=== PATIENT | female | born 1990 | race Caucasian/White ===

== ENCOUNTER 2019-09-10 06:59 | Outpatient (CLI) | payer OTHER, SELFPAY ==
[2019-09-10 07:20] LABS: Basophils Absolute Auto 0.1 K/mm3 (0.0-0.1); Basophils Percent Auto 0.9 % (0.2-1.2); Eosinophils Absolute Auto 0.2 K/mm3 (0-0.3); Eosinophils Percent Auto 3.7 % (0-4.4); Hematocrit 41.2 % (37.0-47.0); Hemoglobin 13.5 g/dL (12.0-15.0); Immature Granulocyte Absolute 0.01 K/mm3 (0.00-0.031); Immature Granulocyte Percent A 0.2 % (0-0.5); Lymphocytes Absolute Auto 2.38 K/mm3 (0.9-3.2); Lymphocytes Percent Auto 36.4 % (18.3-44.2); Mean Corpuscular HGB Conc 32.8 g/dl (32-36); Mean Corpuscular Volume 94.7 fl (80-100); Monocytes Absolute Auto 0.5 K/mm3 (0.1-0.6); Monocytes Percent Auto 8.1 % (2.6-8.5); Neutrophils Absolute Auto 3.3 K/mm3 (1.3-6.7); Neutrophils Percent Auto 50.7 % (45.5-73.1); Platelet Count Result 332 k/mm3 (150-375); Red Blood Count 4.35 M/mm3 (4.2-5.4); Red Cell Distribution Width 12.3 % (11.5-14.5); White Blood Count 6.5 K/mm3 (4.5-10.0)
[2019-09-10 07:33] LABS: Alanine Aminotransferase 19 U/L (4-35); Albumin Level 4.1 g/dL (3.5-5.1); Alkaline Phosphatase 37 U/L (38-126); Aspartate Amino Transferase 23 U/L (14-36); Bilirubin,Total 0.2 mg/dL (0.2-1.3); Blood Urea Nitrogen 7 mg/dL (7-17); Calcium 8.6 mg/dL (8.4-10.2); Carbon Dioxide 25 mmol/L (22-30); Chloride 104 mmol/L (98-107); Cholesterol 221 mg/dL (0-200); Estimated Glomerular Filt Rate > 60; Glucose 93 mg/dL (65-105); HDL Direct 87 mg/dL; Potassium 4.1 mmol/L (3.4-5.0); Sodium 140 mmol/L (137-145); Triglycerides 109 mg/dL (<150)
[2019-09-10 07:45] LABS: LDL Cholesterol Direct 119 mg/dL
[2019-09-11 16:30] LABS: Homocysteine 8.2 umol/L (<10.4)
== END 2019-09-10 07:00 | disposition home or self-care (01) ==
LOC: ANHIMG 07:01
PROVIDERS: PCP Internal Medicine; Visit Provider Internal Medicine
DX: E55.9 Vitamin D deficiency, unspecified (principal); Z79.899 Other long term (current) drug therapy
CPT/HCPCS: 36415; 80053; 80061; 82306; 83090; 85025

== ENCOUNTER 2019-09-11 10:39 | Outpatient (CLI) | payer OTHER, SELFPAY ==
--- NOTE | ~2019-09-11 | CT_ITS ---
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 TECHNIQUE: Computed tomographic angiography (CTA) of the chest was performed without and with 100 mL Omnipaque-350 intravenous contrast. Volume-rendered 3D-reconstructions of the aorta and large arterie s were constructed by the technologist on a separate workstation. Automated exposure control and iter ative reconstruction technique were employed. The dose-length product was 924 mGy-cm. COMPARISON: None. FINDINGS: A couple 3 mm nodules in the right middle and left upper lobes. 2 mm and 3 mm nodule along the left m ajor fissure most likely normal intrafissural lymph nodes. No pneumonia, pulmonary edema or pleural e ffusion. Heart size is normal. No pericardial effusion. No pathologically enlarged abdominal or pelvi c lymphadenopathy. Thoracic aorta is normal in caliber with no evident atherosclerotic plaque or diss ection. No evident atherosclerotic plaque or stenosis at the great vessels although evaluation is mil dly limited at the origin of the arteries due to streak artifact from dense contrast in the left brac hiocephalic vein. Small amount of nonhemodynamically significant plaque along the left vertebral oscar ry which is dominant. The right vertebral artery is diminutive which is likely developmental with cor responding asymmetrically decreased diameter of the right transverse foramen at C6. Instantly noted a ccessory left hepatic artery arising from the left gastric artery. Visualized upper abdomen is unrema rkable. Multiple Schmorl's nodes throughout the thoracic spine. IMPRESSION: 1. No evident atherosclerotic disease or stenosis at the thoracic aorta or at the great vessels arisi ng from the arch to explain reported subclavian steal syndrome. 2. Dominant left vertebral artery with likely developmentally diminutive right vertebral artery. Reviewed, dictated and finalized at location B. IMPRESSION: 1. No evident atherosclerotic disease or stenosis at the thoracic aorta or at t he great vessels arising from the arch to explain reported subclavian steal syn drome. 2. Dominant left vertebral artery with likely developmentally diminutive right vertebral artery.
== END 2019-09-11 10:40 | disposition home or self-care (01) ==
PROVIDERS: PCP Internal Medicine; Visit Provider Internal Medicine
DX: G45.8 Other transient cerebral ischemic attacks and related syndromes (principal)
CPT/HCPCS: 71275; Q9967

== ENCOUNTER 2019-11-04 08:26 | Outpatient (CLI) | payer OTHER, SELFPAY ==
[2019-11-04 09:26] LABS: Alanine Aminotransferase 18 U/L (4-35); Albumin Level 4.1 g/dL (3.5-5.1); Alkaline Phosphatase 38 U/L (38-126); Aspartate Amino Transferase 29 U/L (14-36); Bilirubin,Total 0.3 mg/dL (0.2-1.3); Blood Urea Nitrogen 8 mg/dL (7-17); Calcium 9.2 mg/dL (8.4-10.2); Carbon Dioxide 29 mmol/L (22-30); Chloride 104 mmol/L (98-107); Cholesterol 168 mg/dL (0-200); Estimated Glomerular Filt Rate > 60; Glucose 91 mg/dL (65-105); HDL Direct 100 mg/dL; Potassium 4.4 mmol/L (3.4-5.0); Sodium 136 mmol/L (137-145); Triglycerides 107 mg/dL (<150)
[2019-11-04 09:38] LABS: LDL Cholesterol Direct 62 mg/dL
== END 2019-11-04 08:27 | disposition home or self-care (01) ==
PROVIDERS: PCP Internal Medicine; Visit Provider Internal Medicine
DX: Z79.899 Other long term (current) drug therapy (principal)
CPT/HCPCS: 36415; 80053; 80061

== ENCOUNTER 2019-12-10 10:50 | Outpatient (CLI) | payer OTHER, SELFPAY ==
--- NOTE | ~2019-12-10 | XR_ITS ---
XR knee RT min 4V 12/10/2019 11:38 INDICATION: Right knee pain PROCEDURE: 4 views right knee COMPARISON: No prior studies for comparison. FINDINGS: Fracture, dislocation or subluxation is not identified. No significant joint effusion. The soft tissues appear within normal limits. No foreign bodies are identified. IMPRESSION: 1: NO ACUTE BONE OR JOINT ABNORMALITY IDENTIFIED. Reviewed, dictated and finalized at location A.
--- NOTE | ~2019-12-10 | XR_ITS ---
XR knee LT min 4V 12/10/2019 11:38 INDICATION: Left knee pain PROCEDURE: 4 views left knee COMPARISON: No prior studies for comparison. FINDINGS: Fracture, dislocation or subluxation is not identified. No significant joint effusion. The soft tissues appear within normal limits. No foreign bodies are identified. IMPRESSION: 1: NO ACUTE BONE OR JOINT ABNORMALITY IDENTIFIED. Reviewed, dictated and finalized at location A.
== END 2019-12-10 10:51 | disposition home or self-care (01) ==
PROVIDERS: PCP Internal Medicine; Visit Provider Internal Medicine
DX: M25.561 Pain in right knee (principal); M25.562 Pain in left knee
CPT/HCPCS: 73564

== ENCOUNTER 2020-01-30 10:32 | Outpatient (CLI) | payer OTHER, SELFPAY ==
--- NOTE | ~2020-01-30 | MR_ITS ---
EXAMINATION: MR wrist RT wo con DATE: 01/30/2020 11:26 INDICATION: Favoring cyst at the dorsum of the right wrist TECHNIQUE: Magnetic resonance imaging (MRI) of the right wrist was performed without intravenous cont rast. Sequences performed include axial PD-weighted FSE and PD-weighted FS FSE, coronal PD-weighted F S FSE and T1-weighted SE, and sagittal PD-weighted FS FSE and PD-weighted FSE. COMPARISON: None FINDINGS: Intrinsic ligaments: The scapholunate and lunotriquetral ligaments are normal. Triangular fibrocartilage complex (TFCC): Increased signal of less than fluid intensity consistent with partial tears at the radial side of the central fiber cartilaginous disc of the triangular fibrocartilage complex as well as of the dorsal r adioulnar ligament and foveal attachment. The ulnar styloid attachments and volar radioulnar ligament s are normal. The ulnar collateral ligament, ulnotriquetral ligament and meniscal homologue are norm al. The extensor carpi ulnaris tendon sheath is normal. Extensor wrist: Extensor tendons of the wrist are normal. Minimal fluid along the extensor carpi radialis longus and brevis tendons consistent with mild tenosynovitis. Flexor wrist: The flexor tendons of the wrist are normal. No abnormality in the carpal tunnel with normal median n erve. Guyon's canal: Guyon's canal including the ulnar nerve and artery are normal. Bones/other: Mild joint space narrowing and chondral surface irregularity consistent with mild osteoarthritis at t he radiocarpal articulation. There is suggestion of some irregularity along the articular cortex of t he distal radius with mild increased fluid signal extending a linear pattern at the volar side of the lunate fossa which suggests possibility of an old healed fracture. Correlate with clinical history. Mild cystic change at the volar aspect of the proximal pole of the capitate. Marrow signal is otherwi se normal. No acute fracture, cortical erosions, osteonecrosis or pathologic marrow replacing process . There is an 11 x 5 x 3 mm ganglion cyst which appears to arise from the volar aspect of the midcarp al joint and tracks proximally along the fibers of the palmar radiocarpal ligament. No dorsal sided g anglion cyst appreciated. Visualized intrinsic musculature of the hand is unremarkable. IMPRESSION: 1. 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 2. Partial tears of the foveal attachment, central fiber cartilaginous disc and volar radioulnar liga ment components of the triangular fiber cartilage complex. 3. Small volar sided ganglion cyst extending along the palmar radiocarpal ligament. No dorsal sided g anglion cyst identified. Reviewed, dictated and finalized at location A. IMPRESSION: 1. 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 2. Partial tears of the foveal attachment, central fiber cartilaginous disc and volar radioulnar ligament components of the triangular fiber cartilage complex . 3. Small volar sided ganglion cyst extending along the palmar radiocarpal ligam ent. No dorsal sided ganglion cyst identified.
== END 2020-01-30 10:33 | disposition home or self-care (01) ==
PROVIDERS: Visit Provider Internal Medicine
DX: R22.31 Localized swelling, mass and lump, right upper limb (principal); M19.041 Primary osteoarthritis, right hand; M19.031 Primary osteoarthritis, right wrist
CPT/HCPCS: 73221

== ENCOUNTER 2020-02-11 07:19 | Outpatient (RCR) | payer OTHER, SELFPAY ==
--- NOTE | 2020-02-11 08:56 | OTOPEVAL ---
OCCUPATIONAL THERAPY EVALUATION REPORT 02/11/2020 Thank you for referring Dorys Nguyễn to [facility].?OT indicated every other week for 4 weeks (two sessions total) for follow up on splint wearing, progression of exercise from stretching to strengthening, splint weaning schedule, and eventually strengthening to facilitate optimal functional use of the right UE. Please review, sign, date and return this plan of care SUAD. I agree with and certify that the following plan of care is medically necessary. Referring Physician Date Referring Provider: Dr. Redd *OT Outpatient Evaluation Therapy Assessment Status Assessment Status Assessment Status Evaluation Evaluation Information Problem Diagnosis Right wrist pain Onset Chronic - about 3 years Subjective Information Patient reports having wrist Query Text:As Reported By Patient/ pain during work tasks such as Family typing and mouse use, kayaking, and ADLs. She has an off the shelf wrist cock up brace intermittently with pain. She has not tried a regular schedule with the brace. Prior Level of Function Activity Level (Last 3 Months) Occupation RN Hand Dominance Right Pain Assessment Timing of Pain Assessment Timing of Pain Assessment Assessment Pain Scale Pain Scale Used Numeric (1 - 10) Self Report Pain Assessment Right Dorsal Wrist(s) Reported Pain Level 4 Pain Description Aching Pain Frequency Chronic,Continuous Lowest Pain Intensity 3 Greatest Pain Intensity 9 Other Pain Aggravating Factors kayaking, mowing the grass Pain Score Pain Score 4: Self Report Upper Extremity Range of Motion General Upper Extremity Range of Motion Reason Not Measured WNL/Right Gross Upper Extremity Range of Motion Pain with full forearm Comments rotation, wrist flexion, wrist extension, and full fist. Patient reports a stretching, painful sensation with wrist flexion and full gripping. Upper Extremity Muscle Strength Testing General Upper Extremity Strength Reason Not Measured WNL/Right Gross Upper Extremity Strength Comments Gross strength of the (R) UE is WNL. Palpation Assessment Palpation Palpation Tender on dorsum of wrist along ED tendons. No signs or symptoms of lateral epicondylitis. Splint/Brace/Cast Assessment Splint and Bracing Assessment Right Wrist Fabrication Clinician Made Splint/Brace/Cast Type Wrist Cock-U
--- NOTE | 2020-03-01 10:21 | OTOPEVAL ---
OCCUPATIONAL THERAPY DISCHARGE NOTE 03/01/2020 Thank you for referring Dorys Nguyễn to [facility]. Dorys participated in 2 therapy sessions, which consisted of orthotic fabrication and education on body mechanics and rest to treat chronic right wrist pain. The patient reports that due to her active lifestyle, she is unable to properly rest the wrist and remain compliant with immobilizing. She did state that using kinesiotape on her wrist while at work does help to alleviate her symptoms and she finds she takes less NSAIDS during the day. Recommend that the patient follow up with MD for other intervention in the future if she is unable to maintain mild symptoms. Please review, sign, date and return this discharge SUAD. I agree with and certify that the following plan of care is medically necessary. Referring Physician Date Referring Provider: Rosalind Tang MD
== END 2020-03-01 14:07 | disposition home or self-care (01) ==
LOC: ANHOT 07:19
DX: M25.531 Pain in right wrist (principal)
CPT/HCPCS: 97140; 97166; L3906

== ENCOUNTER 2020-04-02 08:06 | Outpatient (CLI) | payer OTHER, SELFPAY ==
[2020-04-02 08:47] LABS: Basophils Absolute Auto 0.1 K/mm3 (0.0-0.1); Basophils Percent Auto 0.7 % (0.2-1.2); Eosinophils Absolute Auto 0.2 K/mm3 (0-0.3); Eosinophils Percent Auto 2.3 % (0-4.4); Hematocrit 42.4 % (37.0-47.0); Hemoglobin 14.1 g/dL (12.0-15.0); Immature Granulocyte Absolute 0.03 K/mm3 (0.00-0.031); Immature Granulocyte Percent A 0.4 % (0-0.5); Lymphocytes Absolute Auto 1.85 K/mm3 (0.9-3.2); Lymphocytes Percent Auto 26.7 % (18.3-44.2); Mean Corpuscular HGB Conc 33.3 g/dl (32-36); Mean Corpuscular Hemoglobin 30.9 pg (26-34); Mean Platelet Volume 9.2 fl (7.4-10.4); Monocytes Absolute Auto 0.6 K/mm3 (0.1-0.6); Monocytes Percent Auto 8.2 % (2.6-8.5); Neutrophils Absolute Auto 4.3 K/mm3 (1.3-6.7); Neutrophils Percent Auto 61.7 % (45.5-73.1); Platelet Count Result 287 k/mm3 (150-375); Red Blood Count 4.56 M/mm3 (4.2-5.4); Red Cell Distribution Width 12.5 % (11.5-14.5); White Blood Count 6.9 K/mm3 (4.5-10.0)
[2020-04-02 08:58] LABS: Alanine Aminotransferase 53 U/L (4-35); Albumin Level 4.7 g/dL (3.5-5.1); Alkaline Phosphatase 37 U/L (38-126); Anion Gap 8 mmol/L (8-16); Aspartate Amino Transferase 39 U/L (14-36); Bilirubin,Total 0.3 mg/dL (0.2-1.3); Blood Urea Nitrogen 10 mg/dL (7-17); Calcium 9.7 mg/dL (8.4-10.2); Carbon Dioxide 33 mmol/L (22-30); Chloride 100 mmol/L (98-107); Cholesterol 167 mg/dL (0-200); Estimated Glomerular Filt Rate > 60; Glucose 88 mg/dL (65-105); HDL Direct 91 mg/dL; Potassium 4.8 mmol/L (3.4-5.0); Sodium 141 mmol/L (137-145); Triglycerides 72 mg/dL (<150)
[2020-04-02 09:09] LABS: LDL Cholesterol Direct 60 mg/dL
[2020-04-02 09:25] LABS: Hemoglobin A1C 4.8 % (<5.7)
[2020-04-02 09:29] LABS: Thyroid Stimulating Hormone 0.782 uIU/mL (0.465-4.680)
[2020-04-02 09:45] LABS: Free T4 Free Thyroxine 0.83 ng/mL (0.78-2.19); Vitamin D 25 Hydroxy 43.6 ng/mL
[2020-04-06 13:16] LABS: Homocysteine 15.1 umol/L (<10.4)
== END 2020-04-02 08:07 | disposition home or self-care (01) ==
PROVIDERS: Visit Provider Internal Medicine
DX: E78.5 Hyperlipidemia, unspecified (principal); Z79.899 Other long term (current) drug therapy; E55.9 Vitamin D deficiency, unspecified
CPT/HCPCS: 36415; 80053; 80061; 82306; 83036; 83090; 84439; 84443; 85025

== ENCOUNTER 2020-09-23 14:56 | Outpatient (CLI) | payer OTHER, SELFPAY ==
--- NOTE | 2020-09-23 15:01 | ECHO_ITS ---
Patient Info Name: Dorys Nguyễn Age: 30 years : 1990 Gender: Female Ht: 67 in Wt: 248 lbs BSA: 2.36 m2 HR: 69 bpm BP: 128 / 86 mmHg Technical Quality: Fair Exam Date: 09/23/2020 3:27 PM Exam Location: [facility] Patient Status: Outpatient Admit Date: 09/23/2020 Staff Ordering Physician: Iban Redd MD Paper Sales Representative: Manuela Vasquez RDCS Attending Provider: Iban Redd MD Referring Physician: Tramaine OQUENDO; Exam Type: CA echo doppler color flow Study Info Indications - abn ekg Complete two-dimensional, color flow and Doppler transthoracic echocardiogram is performed. Summary 1. Complete two-dimensional, color flow and Doppler transthoracic echocardiogram is performed. 2. Left ventricular chamber dimension is normal. 3. Left ventricular systolic function is normal, estimated at 60-65%. 4. The left ventricular diastolic function is normal. 5. E/e' 6 is not elevated. 6. Global longitudinal strain is normal at -18.9%. 7. No pulmonary hypertension, estimated pulmonary arterial systolic pressure is 21 mmHg. 8. There is trace pulmonic regurgitation. Left Ventricle E/e' 6 is not elevated. Global longitudinal strain is normal at -18.9%. Left ventricular chamber dimension is normal. Left ventricular systolic function is normal, estimated at 60-65%. The left ventricular diastolic function is normal. Right Ventricle Right ventricular chamber dimension is normal. Right ventricular systolic function is normal. Left Atria Left atrial chamber dimension is normal. Right Atria Right atrial chamber dimension is normal. Aortic Valve The aortic valve is trileaflet. There is no aortic valve stenosis. There is no aortic valve regurgitation. Pulmonic Valve There is trace pulmonic regurgitation. Mitral Valve There is no mitral valve stenosis. There is no mitral valve regurgitation. Tricuspid Valve There is no tricuspid valve regurgitation. No pulmonary hypertension, estimated pulmonary arterial systolic pressure is 21 mmHg. Pericardium/Pleural There is no pericardial effusion. Inferior Vena Cava Normal inferior vena cava with >50% collapse upon inspiration consistent with normal right atrial pressure, 5 mmHg. Aorta The aortic root size at the sinus of Valsalva is normal. Left Ventricular Outflow Tract Name Value Normal LVOT 2D LVOT Diameter 2.1 cm LVOT Doppler LVOT Peak Gradient 4 mmHg LVOT Mean Gradient 2 mmHg LVOT VTI 21 cm LVOT VTI/AV VTI Ratio 1.0 LVOT Stroke Volume 73 ml LVOT CO 15.4 l/min LVOT CI 6.5 l/min/m2 Pulmonic Valve Name Value Normal PV Doppler PV Peak Gradient
== END 2020-09-23 14:57 | disposition home or self-care (01) ==
PROVIDERS: Visit Provider Internal Medicine
DX: R94.31 Abnormal electrocardiogram [ECG] [EKG] (principal); Z82.41 Family history of sudden cardiac death
CPT/HCPCS: 93306

== ENCOUNTER 2020-12-29 10:21 | Outpatient (CLI) | payer OTHER, SELFPAY ==
[2020-12-29 10:56] LABS: Basophils Absolute Auto 0.1 K/mm3 (0.0-0.1); Basophils Percent Auto 0.7 % (0.2-1.2); Eosinophils Absolute Auto 0.1 K/mm3 (0-0.3); Eosinophils Percent Auto 1.8 % (0-4.4); Hematocrit 42.4 % (37.0-47.0); Hemoglobin 13.9 g/dL (12.0-15.0); Immature Granulocyte Absolute 0.01 K/mm3 (0.00-0.031); Immature Granulocyte Percent A 0.1 % (0-0.5); Lymphocytes Absolute Auto 1.89 K/mm3 (0.9-3.2); Lymphocytes Percent Auto 25.8 % (18.3-44.2); Mean Corpuscular HGB Conc 32.8 g/dl (32-36); Mean Corpuscular Hemoglobin 31.4 pg (26-34); Mean Corpuscular Volume 95.7 fl (80-100); Mean Platelet Volume 9.3 fl (7.4-10.4); Monocytes Absolute Auto 0.5 K/mm3 (0.1-0.6); Monocytes Percent Auto 6.8 % (2.6-8.5); Neutrophils Absolute Auto 4.7 K/mm3 (1.3-6.7); Neutrophils Percent Auto 64.8 % (45.5-73.1); Platelet Count Result 309 k/mm3 (150-375); Red Blood Count 4.43 M/mm3 (4.2-5.4); White Blood Count 7.3 K/mm3 (4.5-10.0)
[2020-12-29 11:09] LABS: Alanine Aminotransferase 34 U/L (4-35); Albumin Level 4.4 g/dL (3.5-5.1); Alkaline Phosphatase 35 U/L (38-126); Anion Gap 10 mmol/L (8-16); Aspartate Amino Transferase 39 U/L (14-36); Bilirubin,Total 0.4 mg/dL (0.2-1.3); Blood Urea Nitrogen 10 mg/dL (7-17); CRP < 0.5 mg/dL (<1.0); Calcium 9.6 mg/dL (8.4-10.2); Carbon Dioxide 26 mmol/L (22-30); Chloride 104 mmol/L (98-107); Cholesterol 176 mg/dL (0-200); Estimated Glomerular Filt Rate > 60; Glucose 87 mg/dL (65-110); HDL Direct 87 mg/dL; Potassium 4.2 mmol/L (3.4-5.0); Sodium 140 mmol/L (137-145); Triglycerides 78 mg/dL (<150)
[2020-12-29 11:30] LABS: LDL Cholesterol Direct 67 mg/dL
[2020-12-29 11:54] LABS: Thyroid Stimulating Hormone 0.617 uIU/mL (0.465-4.680)
[2020-12-29 12:34] LABS: Free T4 Free Thyroxine 1.03 ng/mL (0.78-2.19); Vitamin D 25 Hydroxy 43.3 ng/mL
[2021-01-01 04:15] LABS: Insulin Level Total 6.6 uIU/mL (<=19.6)
[2021-01-03 10:47] LABS: Homocysteine 7.4 umol/L (<10.4)
== END 2020-12-29 10:22 | disposition home or self-care (01) ==
PROVIDERS: Visit Provider Internal Medicine
DX: E55.9 Vitamin D deficiency, unspecified (principal); E78.5 Hyperlipidemia, unspecified; Z51.81 Encounter for therapeutic drug level monitoring; Z79.899 Other long term (current) drug therapy
CPT/HCPCS: 36415; 80053; 80061; 82306; 83090; 83525; 84439; 84443; 85025; 86140

== ENCOUNTER 2021-01-26 15:19 | Outpatient (CLI) | payer OTHER, SELFPAY ==
[2021-01-31 00:03] LABS: NIL 0.01 IU/mL; Quantiferon TB Plus, 1T NEGATIVE (NEGATIVE); TB1-NIL 0.01 IU/mL; TB2-NIL 0.01 IU/mL
== END 2021-01-26 15:20 | disposition home or self-care (01) ==
PROVIDERS: Visit Provider Internal Medicine
DX: Z11.1 Encounter for screening for respiratory tuberculosis (principal)
CPT/HCPCS: 36415; 86480

== ENCOUNTER 2021-07-08 09:01 | Outpatient (CLI) | payer OTHER, SELFPAY ==
[2021-07-08 09:32] LABS: Basophils Percent Auto 0.7 % (0.2-1.2); Eosinophils Absolute Auto 0.1 K/mm3 (0-0.3); Eosinophils Percent Auto 1.8 % (0-4.4); Hemoglobin 14.2 g/dL (12.0-15.0); Immature Granulocyte Absolute 0.02 K/mm3 (0.00-0.031); Immature Granulocyte Percent A 0.3 % (0-0.5); Lymphocytes Absolute Auto 1.75 K/mm3 (0.9-3.2); Lymphocytes Percent Auto 28.6 % (18.3-44.2); Mean Corpuscular HGB Conc 34.6 g/dl (32-36); Mean Corpuscular Hemoglobin 32.3 pg (26-34); Mean Corpuscular Volume 93.2 fl (80-100); Mean Platelet Volume 9.1 fl (7.4-10.4); Monocytes Absolute Auto 0.6 K/mm3 (0.1-0.6); Monocytes Percent Auto 9.7 % (2.6-8.5); Neutrophils Absolute Auto 3.6 K/mm3 (1.3-6.7); Neutrophils Percent Auto 58.9 % (45.5-73.1); Platelet Count Result 283 k/mm3 (150-375); Red Cell Distribution Width 11.9 % (11.5-14.5); White Blood Count 6.1 K/mm3 (4.5-10.0)
[2021-07-08 09:46] LABS: Alanine Aminotransferase 25 U/L (4-35); Albumin Level 4.7 g/dL (3.5-5.1); Alkaline Phosphatase 35 U/L (38-126); Anion Gap 5 mmol/L (8-16); Aspartate Amino Transferase 27 U/L (14-36); Bilirubin,Total 0.6 mg/dL (0.2-1.3); Blood Urea Nitrogen 8 mg/dL (7-17); Calcium 9.5 mg/dL (8.4-10.2); Carbon Dioxide 26 mmol/L (22-30); Chloride 107 mmol/L (98-107); Cholesterol 234 mg/dL (0-200); Estimated Glomerular Filt Rate > 60; Glucose 89 mg/dL (65-110); HDL Direct 76 mg/dL; Potassium 4.1 mmol/L (3.4-5.0); Sodium 138 mmol/L (137-145); Triglycerides 54 mg/dL (<150)
[2021-07-08 10:02] LABS: LDL Cholesterol Direct 117 mg/dL
[2021-07-08 10:25] LABS: Thyroid Stimulating Hormone 0.535 uIU/mL (0.465-4.680)
[2021-07-08 10:27] LABS: Free T4 Free Thyroxine 0.86 ng/mL (0.78-2.19); Vitamin D 25 Hydroxy 33.7 ng/mL
[2021-07-08 11:20] LABS: Hemoglobin A1C 4.8 % (<5.7)
[2021-07-11 10:11] LABS: Apolipoprotein B 98 mg/dL (<90)
[2021-07-11 20:17] LABS: Homocysteine 7.7 umol/L (<10.4)
== END 2021-07-08 09:02 | disposition home or self-care (01) ==
LOC: ANHLAB 09:04
PROVIDERS: Visit Provider Internal Medicine
DX: E78.5 Hyperlipidemia, unspecified (principal); E55.9 Vitamin D deficiency, unspecified; Z79.899 Other long term (current) drug therapy
CPT/HCPCS: 36415; 80053; 80061; 82172; 82306; 83036; 83090; 84439; 84443; 85025

== ENCOUNTER 2021-11-10 09:25 | Outpatient (CLI) | payer OTHER, SELFPAY ==
--- NOTE | ~2021-11-10 | CT_ITS ---
EXAMINATION: CT wrist RT wo con DATE: 11/10/2021 09:51 INDICATION: Right wrist pain TECHNIQUE: High resolution computed tomography (CT) of the right wrist was performed without intraven ous contrast. Additional sagittal and coronal reconstructions were performed. Automated exposure cont rol and iterative reconstruction technique were employed. The dose-length product was 361.16 mGy-cm. COMPARISON: Right wrist MRI dated 01/30/2020 FINDINGS: Bone alignment is normal. Motion artifact at the proximal phalanx of the thumb. No fracture. Joint sp aces appear relatively preserved. Mild subarticular cystic change along the volar side of the lunate fossa suggesting overlying chondromalacia. Soft tissues are unremarkable. IMPRESSION: 1. Mild subarticular cystic changes at the volar aspect of the lunate fossa of the distal radius sugg esting overlying chondromalacia but with preserved joint space. Reviewed, dictated and finalized at location B. IMPRESSION: 1. Mild subarticular cystic changes at the volar aspect of the lunate fossa of the distal radius suggesting overlying chondromalacia but with preserved joint space.
== END 2021-11-10 09:26 | disposition home or self-care (01) ==
LOC: ANHIMG 09:26
DX: M25.531 Pain in right wrist (principal)
CPT/HCPCS: 73200

== ENCOUNTER 2022-01-11 07:18 | Outpatient (CLI) | payer OTHER, SELFPAY ==
[2022-01-11 07:50] LABS: Basophils Absolute Auto 0.1 K/mm3 (0.0-0.1); Basophils Percent Auto 0.7 % (0.2-1.2); Eosinophils Absolute Auto 0.1 K/mm3 (0-0.3); Eosinophils Percent Auto 1.7 % (0-4.4); Hematocrit 40.8 % (37.0-47.0); Hemoglobin 13.5 g/dL (12.0-15.0); Immature Granulocyte Absolute 0.01 K/mm3 (0.00-0.031); Immature Granulocyte Percent A 0.1 % (0-0.5); Lymphocytes Absolute Auto 1.86 K/mm3 (0.9-3.2); Lymphocytes Percent Auto 26.8 % (18.3-44.2); Mean Corpuscular HGB Conc 33.1 g/dl (32-36); Mean Corpuscular Volume 96.7 fl (80-100); Mean Platelet Volume 9.2 fl (7.4-10.4); Monocytes Absolute Auto 0.5 K/mm3 (0.1-0.6); Monocytes Percent Auto 7.2 % (2.6-8.5); Neutrophils Absolute Auto 4.4 K/mm3 (1.3-6.7); Neutrophils Percent Auto 63.5 % (45.5-73.1); Platelet Count Result 264 k/mm3 (150-375); Red Blood Count 4.22 M/mm3 (4.2-5.4); Red Cell Distribution Width 12.5 % (11.5-14.5); White Blood Count 6.9 K/mm3 (4.5-10.0)
[2022-01-11 07:54] LABS: Appearance Urine Clear (Clear); Bilirubin Urine Negative (Negative); Blood Urine Negative (Negative); Color Urine Yellow (Yellow); Glucose Urine UA Negative (Negative); Ketones Urine Negative (Negative); Leukocyte Esterase Ur 1+ LEU/UL (Negative); Nitrate Urine Negative (Negative); Protein Urine Negative (Negative); Specific Grav Ur 1.015 (1.001-1.035); Urobilinogen Urine 0.2 mg/dL (<2.0); pH Urine 8.5 (5.0-9.0)
[2022-01-11 08:00] LABS: Add Urine Microscopic? YES; Mucus Urine Rare /lpf; RBC Urine 0-2 /hpf (0-2); Squamous Epithelial Cell Urine Few /hpf (Few)
[2022-01-11 08:44] LABS: Free T4 Free Thyroxine 1.17 ng/mL (0.78-2.19); Vitamin D 25 Hydroxy 46.1 ng/mL
[2022-01-11 09:39] LABS: Alanine Aminotransferase 23 U/L (6-35); Albumin Level 4.4 g/dL (3.5-5.1); Alkaline Phosphatase 31 U/L (38-126); Anion Gap 10 mmol/L (8-16); Aspartate Amino Transferase 24 U/L (14-36); Bilirubin,Total 0.5 mg/dL (0.2-1.3); Blood Urea Nitrogen 7 mg/dL (7-17); Calcium 9.4 mg/dL (8.4-10.2); Carbon Dioxide 26 mmol/L (22-30); Chloride 101 mmol/L (98-107); Cholesterol 135 mg/dL (0-200); Estimated Glomerular Filt Rate > 60; Glucose 85 mg/dL (65-110); HDL Direct 73 mg/dL; Potassium 4.3 mmol/L (3.4-5.0); Sodium 137 mmol/L (137-145); Triglycerides 48 mg/dL (<150)
[2022-01-11 09:46] LABS: Hemoglobin A1C 4.7 % (<5.7)
[2022-01-11 10:10] LABS: Thyroid Stimulating Hormone 0.376 uIU/mL (0.465-4.680)
[2022-01-11 10:46] LABS: Folic Acid > 20.0 ng/mL (2.76->20)
[2022-01-11 10:51] LABS: LDL Cholesterol Direct 38 mg/dL
[2022-01-13 14:56] LABS: NIL 0.02 IU/mL; Quantiferon TB Plus, 1T NEGATIVE (NEGATIVE); TB2-NIL <0.00 IU/mL
== END 2022-01-11 07:19 | disposition home or self-care (01) ==
PROVIDERS: Visit Provider Internal Medicine
DX: E78.5 Hyperlipidemia, unspecified (principal); E55.9 Vitamin D deficiency, unspecified; Z51.81 Encounter for therapeutic drug level monitoring; Z79.899 Other long term (current) drug therapy; Z11.1 Encounter for screening for respiratory tuberculosis
CPT/HCPCS: 36415; 80053; 80061; 81001; 82306; 82607; 82746; 83036; 84439; 84443; 85025; 86480